=== PATIENT | male | born 1955 | race Caucasian/White ===

== ENCOUNTER 2023-09-21 15:48 | Inpatient (IN) | payer MEDICARE, OTHER ==
[~2023-09-21] VITALS: Ht 182.9 cm; Wt 132.0 kg
[2023-09-21 16:38] LABS: BASOPHILS # (AUTO) 0.1 K/uL (0.0-0.2); BASOPHILS % (AUTO) 0.6 % (0.0-2.0); EOSINOPHILS # (AUTO) 0.2 K/uL (0.0-0.7); EOSINOPHILS % (AUTO) 2.6 % (0.0-6.0); HEMATOCRIT 33 % (39-51); HEMOGLOBIN 11.1 g/dL (13.5-17.5); LYMPHOCYTES # (AUTO) 2.1 K/uL (0.8-4.8); LYMPHOCYTES % (AUTO) 24.8 % (20.0-44.0); MEAN CORPUSCULAR HEMOGLOBIN 30 PG (26.0-33.0); MEAN CORPUSCULAR HGB CONC 34 g/dl (31.0-36.0); MEAN CORPUSCULAR VOLUME 89 fL (80-96); MONOCYTES # (AUTO) 0.7 K/uL (0.1-1.30); MONOCYTES % (AUTO) 8.7 % (2.0-12.0); NEUTROPHILS # (AUTO) 5.3 K/uL (1.8-8.9); NEUTROPHILS % (AUTO) 63.3 % (43.0-81.0); PLATELET COUNT (AUTO) 314 K/uL (150-450); RED BLOOD CELL COUNT(AUTO) 3.68 MIL/uL (4.5-6.0); RED CELL DISTRIBUTION WIDTH 14.1 % (11.5-15.0); WHITE BLOOD COUNT (AUTO) 8.3 K/uL (4.3-11.0)
[2023-09-21] MEDS ORDERED: FERR325T23 PO (16:55)
[2023-09-21] MEDS ORDERED: MULT-213 PO (16:55)
[2023-09-21] MEDS ORDERED: POTA20PA3 PO (16:55)
[2023-09-21] MEDS ORDERED: POLY15DR31 EACHEYE (16:55)
[2023-09-21] MEDS ORDERED: PHEN300C6 PO (16:55)
[2023-09-21] MEDS ORDERED: MAGN400O6 PO (16:55)
[2023-09-21] MEDS ORDERED: NA P133E RC (16:55)
[2023-09-21] MEDS ORDERED: BUME2TAB7 PO (16:55)
[2023-09-21] MEDS ORDERED: CHOL500062 PO (16:55)
[2023-09-21] MEDS ORDERED: TOPI100T38 PO (16:55)
[2023-09-21] MEDS ORDERED: QUET100T PO (16:55)
[2023-09-21] MEDS ORDERED: IBUP-1955 PO (16:55)
[2023-09-21] MEDS ORDERED: ACET325T53 PO (16:55)
[2023-09-21] MEDS ORDERED: ACET-637 PO (16:55)
[2023-09-21] MEDS ORDERED: QUET25TA PO (16:55)
[2023-09-21] MEDS ORDERED: PHEN200C5 PO (16:55)
[2023-09-21] MEDS ORDERED: BENZ1LOZ58 PO (16:55)
[2023-09-21] MEDS ORDERED: BENZ-38 PO (16:55)
[2023-09-21] MEDS ORDERED: BISA10SU11 RC (16:55)
[2023-09-21] MEDS ORDERED: CITA20TA16 PO (16:55)
[2023-09-21] MEDS ORDERED: HYDR-3980 PO (16:55)
[2023-09-21] MEDS ORDERED: TAMS-12 PO (16:55)
[2023-09-21] MEDS ORDERED: GUAI100S69 PO (16:55)
[2023-09-21] MEDS ORDERED: ASCO-352 PO (16:55)
[2023-09-21] MEDS ORDERED: CAND8TAB4 PO (16:55)
[2023-09-21] MEDS ORDERED: BISA5TAB10 PO (16:55)
[2023-09-21] MEDS ORDERED: ASPI-1420 PO (16:55)
[2023-09-21] MEDS ORDERED: DIPH25TA62 PO (16:55)
[2023-09-21] MEDS ORDERED: ZOLP5TAB8 PO (16:55)
[2023-09-21] MEDS ORDERED: LORA-258 PO (16:55)
[2023-09-21 17:37] LABS: CARBON DIOXIDE 25 mmol/L (21-32); CHLORIDE 105 mmol/L (98-107); CREATININE 1.1 mg/dL (0.6-1.3); GLUCOSE 108 mg/dL (74-106); POTASSIUM 4.2 mmol/L (3.5-5.1); SODIUM SERUM 137 mmol/L (136-145); UREA NITROGEN, BLOOD 30 mg/dL (7-18)
[2023-09-21] MEDS ORDERED: ONDANSETRON HCL/PF 4 MG/2 ML VIAL ONE (17:45)
[2023-09-21] MEDS ORDERED: ACETAMINOPHEN 325 MG TABLET ONE (17:45)
[2023-09-21 17:50] LABS: ALANINE AMINOTRANSFERASE 20 U/L (12-78); ALBUMIN 3.6 g/dL (3.4-5.0); ALKALINE PHOSPHATASE 91 U/L (46-116); ASPARTATE AMINOTRANSFERASE 13 U/L (15-37); BILIRUBIN,DIRECT 0.1 mg/dL (0.0-0.2); BILIRUBIN,TOTAL 0.2 mg/dL (0.2-1.0); NT-PRO BNP 468 pg/mL (0-125); TOTAL PROTEIN, SERUM 7.2 g/dL (6.4-8.2)
[2023-09-21] MEDS: IV NS 0.9% 1,000 ML IV PRN (18:01)
[2023-09-21] MEDS: ENOXAPARIN SODIUM 40 MG/0.4 ML DISP.SYRIN SQ SCH (18:01)
[2023-09-21] MEDS: ONDANSETRON HCL/PF 4 MG/2 ML VIAL IVP PRN (18:02)
[2023-09-21] MEDS: ACETAMINOPHEN 325 MG TABLET PO PRN (18:02)
[2023-09-21 20:00] VITALS: BP 102/64; TEMP 97.9; O2SAT 94
[2023-09-21 20:29] VITALS: BP 102/64; TEMP 97.9; O2SAT 94
[2023-09-21] MEDS ORDERED: ZOLPIDEM TARTRATE 5 MG TABLET PO PRN (23:30)
[2023-09-21] MEDS ORDERED: BENZONATATE 100 MG CAPSULE PO PRN (23:30)
[2023-09-21] MEDS ORDERED: BISACODYL SUPP (10 MG) 10 MG/SUPP.RECT SUPP.RECT RC PRN (23:30)
[2023-09-21] MEDS ORDERED: MAGNESIUM HYDROXIDE 30 ML UDC PO PRN (23:30)
[2023-09-22] MEDS: HYDROCODONE/APAP 10/325MG TABLET PO PRN (02:35)
[2023-09-22 06:49] LABS: APPEARANCE,URINE SLIGHTLY CLOUDY (CLEAR); BILIRUBIN,URINE NEGATIVE (NEGATIVE); BLOOD, URINE 3+ Ery/uL (NEGATIVE); COLOR,URINE YELLOW (YELLOW); KETONES,URINE NEGATIVE (NEGATIVE); LEUKOCYTE ESTERASE ,URINE 1+ (NEGATIVE); NITRITE, URINE NEGATIVE (NEGATIVE); PH,URINE 5.5 (5.0-8.0); PROTEIN,URINE NEGATIVE (NEGATIVE); UGLUCOSE NEGATIVE (NEGATIVE); UROBILINOGEN,URINE 0.2 EU/dL (0.2)
[2023-09-22 06:57] LABS: ADD URINE CULTURE YES; BACTERIA,URINE Few /HPF (None Seen); RBC,URINE 21-50 /HPF (0-2); SQUAMOUS EPITHELIAL CELL,UR Rare /HPF (None Seen)
[2023-09-22] MEDS ORDERED: Z GUARD REMEDY 4 OZ OINT TP PRN (07:00)
[2023-09-22 07:26] LABS: BASOPHILS % (AUTO) 0.5 % (0.0-2.0); EOSINOPHILS # (AUTO) 0.3 K/uL (0.0-0.7); HEMATOCRIT 30 % (39-51); HEMOGLOBIN 10.2 g/dL (13.5-17.5); LYMPHOCYTES # (AUTO) 2.6 K/uL (0.8-4.8); LYMPHOCYTES % (AUTO) 30.1 % (20.0-44.0); MEAN CORPUSCULAR HEMOGLOBIN 30 PG (26.0-33.0); MEAN CORPUSCULAR HGB CONC 34 g/dl (31.0-36.0); MEAN CORPUSCULAR VOLUME 90 fL (80-96); MONOCYTES # (AUTO) 0.9 K/uL (0.1-1.30); MONOCYTES % (AUTO) 10.3 % (2.0-12.0); NEUTROPHILS # (AUTO) 4.8 K/uL (1.8-8.9); NEUTROPHILS % (AUTO) 56.1 % (43.0-81.0); PLATELET COUNT (AUTO) 296 K/uL (150-450); RED BLOOD CELL COUNT(AUTO) 3.34 MIL/uL (4.5-6.0); RED CELL DISTRIBUTION WIDTH 14.1 % (11.5-15.0); WHITE BLOOD COUNT (AUTO) 8.6 K/uL (4.3-11.0)
[2023-09-22 07:33] LABS: CALCIUM, SERUM 9.3 mg/dL (8.5-10.1); CREATININE 1.1 mg/dL (0.6-1.3); MAGNESIUM 2.1 mg/dL (1.8-2.4); PHOSPHORUS 4.2 mg/dL (2.5-4.9)
[2023-09-22 08:00] VITALS: BP 101/58; TEMP 97.8; O2SAT 95
[2023-09-22] MEDS: TAMSULOSIN 0.4 MG CAP.SR.24H PO SCH (08:40)
[2023-09-22] MEDS: ASPIRIN EC 81 MG TABLET.DR PO SCH (08:41)
[2023-09-22] MEDS: CITALOPRAM HYDROBROMIDE 20 MG TABLET PO SCH (08:41)
[2023-09-22] MEDS: FERROUS SULFATE (325 MG) 325 MG/TAB TABLET PO SCH (08:41)
[2023-09-22] MEDS: ASCORBIC ACID 500 MG TABLET PO SCH (08:41)
[2023-09-22] MEDS: POTASSIUM CHLORIDE 20 MEQ POWDER PACKET PO SCH (08:41)
[2023-09-22] MEDS: QUETIAPINE FUMARATE 25 MG TABLET PO SCH (08:41)
[2023-09-22] MEDS: LORAZEPAM 0.5 MG TABLET PO PRN (08:49)
[2023-09-22] MEDS: BISACODYL (5 MG) 5 MG TABLET.DR PO SCH (09:00)
[2023-09-22] MEDS: Z GUARD REMEDY 4 OZ OINT TP SCH (09:05)
[2023-09-22] MEDS: CLOTRIMAZOLE 1% 15 GM TUBE TP SCH (09:05)
[2023-09-22] MEDS: PHENYTOIN EXTENDED RELEASE 100 MG CAPSULE PO SCH ×2 (09:10→21:02)
[2023-09-22] MEDS: IBUPROFEN 600 MG TABLET PO PRN (12:42)
[2023-09-22] MEDS ORDERED: LORAZEPAM INJ 2 MG/ML VIAL IV ONE ×2 (14:30)
[2023-09-22] MEDS ORDERED: CIPROFLOXACIN HCL 500 MG TABLET PO SCH (14:30)
[2023-09-22] MEDS: LORAZEPAM INJ 2 MG/ML VIAL IM ONE (14:35)
[2023-09-22] MEDS: CEPHALEXIN MONOHYDRATE 500 MG CAPSULE PO SCH (14:48)
[2023-09-22 16:00] VITALS: BP 121/63; TEMP 98.6; O2SAT 96
[2023-09-22] MEDS ORDERED: TOPIRAMATE 100 MG TABLET PO SCH (18:00)
[2023-09-22 20:00] VITALS: BP 126/87; TEMP 98.2; O2SAT 95
[2023-09-22] MEDS: TOPIRAMATE 100 MG TABLET PO SCH (20:09)
[2023-09-22] MEDS: ENOXAPARIN SODIUM 40 MG/0.4 ML DISP.SYRIN SQ SCH (20:10)
[2023-09-22] MEDS: QUETIAPINE FUMARATE 100 MG TABLET PO SCH (21:02)
[2023-09-22] MEDS: GUAIFENESIN 300 MG/15 ML UDC PO PRN (21:20)
[2023-09-23] MEDS: LORAZEPAM INJ 2 MG/ML VIAL IM/IV ONE (04:11)
[2023-09-23 04:16] LABS: CREATININE, URINE 167.2 MG/DL (30.0-125.0); URINE TOTAL PROTEIN 43.9 mg/dL (0-11.9)
[2023-09-23 07:00] VITALS: BP 104/53; TEMP 97.4; O2SAT 95
[2023-09-23 16:00] VITALS: BP 123/64; TEMP 97.9; O2SAT 95
[2023-09-23 20:00] VITALS: BP 118/73; TEMP 97.3; O2SAT 94
[2023-09-23 20:19] VITALS: BP 118/73; TEMP 97.3; O2SAT 94
[2023-09-24 07:00] VITALS: BP 120/90; TEMP 97.7; O2SAT 94
[2023-09-24] MEDS ORDERED: POTASSIUM CHLORIDE 20 MEQ POWDER PACKET PO SCH (09:00)
[2023-09-24] MEDS ORDERED: VANC125C11 PO (12:24)
[2023-09-24] MEDS ORDERED: CEPH-570 PO (12:25)
== END 2023-09-24 17:38 | DRG 640 ==
LOC: ER 15:48 → MED 18:22
PROVIDERS: ADMIT Nurse Practitioner Acute Care; ATTEND Nurse Practitioner Acute Care
PROC: 0HBMXZZ Excision of Right Foot Skin, External Approach (ICD-10-PCS; principal; 2023-09-22)
DX: E86.0 Dehydration (principal); G93.41 Metabolic encephalopathy; N17.9 Acute kidney failure, unspecified; A04.72 Enterocolitis due to Clostridium difficile, not specified as recurrent; N39.0 Urinary tract infection, site not specified; D68.59 Other primary thrombophilia; I50.32 Chronic diastolic (congestive) heart failure; R62.7 Adult failure to thrive; R30.0 Dysuria; I10 Essential (primary) hypertension; E78.5 Hyperlipidemia, unspecified; L60.3 Nail dystrophy; R51.9 Headache, unspecified; E66.01 Morbid (severe) obesity due to excess calories; Z68.39 Body mass index [BMI] 39.0-39.9, adult; B96.89 Other specified bacterial agents as the cause of diseases classified elsewhere; F31.9 Bipolar disorder, unspecified; G40.909 Epilepsy, unspecified, not intractable, without status epilepticus; B35.1 Tinea unguium; D64.9 Anemia, unspecified; I11.0 Hypertensive heart disease with heart failure; L84 Corns and callosities; M89.8X9 Other specified disorders of bone, unspecified site; N40.0 Benign prostatic hyperplasia without lower urinary tract symptoms; Z79.899 Other long term (current) drug therapy
CPT/HCPCS: 36415; 71045-TC; 80048-TC; 80061-TC; 80076-TC; 81001; 82570-TC; 83735-TC; 83880; 84100-TC; 84300-TC; 84484-TC; 85025-TC; 87081-TC; 87086-TC; A4223; G0378; J1650; J2060; J2405; J7030